=== PATIENT | female | born 1995 | race Caucasian/White ===

== ENCOUNTER 2025-01-19 19:02 | Inpatient (IN) | payer OTHER, SELFPAY ==
[2025-01-19 19:06] VITALS: BP 149/109; PULSE 104; RESP 16; TEMP 37.3; O2SAT 98; BMI 25.3
--- NOTE | 2025-01-19 19:57 | EX.ED.DYSGE1 ---
HPI History of Present Illness Chief Complaint: Substance Abuse Informant: patient and family Narrative Narrative: Patient is a 29-year-old female with history of alcohol use presenting for alcohol detox. Patient's last drink at 2100 yesterday. She initially tried to go to [facility] but they told her since she is not and active withdrawal she was turned away. Her godmother picked her up when she got off work today and brought her here. While in triage patient had generalized tonic-clonic seizure. Per godmother no history of alcohol withdrawal or seizures. Does have a history of asthma. PFSH PFSH Medical History Asthma Stomach ulcer ETOH abuse Home Medications ?Medication ?Instructions ?Recorded ?Last Taken ?Type NK 01/19/25 Unknown History Allergy/AdvReac Type Severity Reaction Status Date / Time No Known Allergies Allergy Verified 01/19/25 19:06 Social History Smoking Status: Former smoker ROS ROS ED Review of Systems ROS Unobtainable: due to mental status EXAM Physical Exam Const Vital Signs: 01/19/25 19:06 01/19/25 20:02 01/19/25 21:07 Temperature 99.1 F 98.1 F Temperature Source Oral Oral Pulse Rate 104 H 110 H 92 Respiratory Rate 16 20 H 17 Blood Pressure 149/109 H 145/102 H 142/103 H Blood Pressure Mean 122 116 116 Blood Pressure Source Monitor Blood Pressure Position Semi-Fowlers Blood Pressure Location Right Arm Pulse Ox 98 95 100 Oxygen Delivery Method Room Air Room Air Room Air 01/19/25 21:48 Temperature 98.6 F Temperature Source Pulse Rate 93 Respiratory Rate 18 Blood Pressure 141/99 H Blood Pressure Mean 113 Blood Pressure Source Blood Pressure Position Blood Pressure Location Pulse Ox 100 Oxygen Delivery Method Constitutional Narrative: Patient actively seizing on my initial evaluation. HEENT Reports moist mucous membranes Eyes PERRL and EOMs intact bilaterally Neck supple Neck Narrative: No meningeal signs Chest Wall inspection of chest normal and palpation of chest normal Resp normal respiratory effort and clear to auscultation bilaterally Cardio regular rhythm Rate: tachycardic GI normal to inspection, nondistended, normoactive bowel sounds and non-tender Neuro Neuro Narrative: Initially altered and having active seizure-like activity. Shortly after that patient is somnolent but responds to basic commands with verbal stimuli. Moving all extremities. Psych mental status grossly normal Skin no rashes or lesions noted and no wounds MDM MDM MDM Narrative Medical decision making narrative: Patient evaluated for symptoms associate with alcohol withdrawal. While in the ER in triage patient had acute seizure. Suspect she is in acute alcohol withdrawal. Patient is given IV Ativan with cessation of her seizure-like activity. Is mildly postictal afterwards. Physical consent consistent with some mild encephalopathy. Workup is consistent with changes had a seizure with a bicarb of 15, elevated anion gap of 32 otherwise BMP largely normal. CBC normal. Has some elevation of her AST with a 2 1 ratio to her ALT which is consistent with history of alcohol use. Alcohol level at this point is 80. Patient be admitted for further alcohol detox. Some further Ativan and IV fluids in the emergency room. Case discussed with hospitalist, Dr. Neri for admission. Patient is agreeable with admission. Patient does have T wave inversions on EKG with does not have any tachycardia, chest pain or other acute abnormalities. Will add on high-sensitivity opponent out of abundance of caution but suspect changes could be related to her recent seizure/stress pattern. Lab Data Attestation: I reviewed the patient's lab results. Labs: Laboratory Results - last 24 hr 01/19/25 20:00 WBC 6.3 RBC 4.58 Hgb 13.7 Hct 42.7 MCV 93.2 MCH 29.9 MCHC 32.1 RDW Std Deviation 58.3 H RDW Coeff of Serafin 17.1 H Plt Count 79 L MPV 10.3 Immature Gran % (Auto) 0.500 Neut % (Auto) 47.7 Lymph % (Auto) 35.2 [place] % (Auto) 13.1 H Eos % (Auto) 1.9 Baso % (Auto) 1.6 H Absolute Neuts (auto) 3.0 Absolute Lymphs (auto) 2.21 Nucleated RBC % 0 PT 13.9 INR 1.1 Sodium 142 Potassium 3.3 Chloride 94 L Carbon Dioxide 15.1 L Anion Gap 32 H BUN 7 Creatinine 0.72 Estim Creat Clear Calc 94.71 Est GFR (MDRD) Non-Af 114 BUN/Creatinine Ratio 10.1 Glucose 103 H Calcium 9.6 Total Bilirubin 0.84 AST 210 H ALT 115 H Alkaline Phosphatase 62 Total Protein 8.3 Albumin 5.0 Globulin 3.3 Albumin/Globulin Ratio 1.5 Serum , Qual NEGATIVE Ethyl Alcohol 80.5 H Rhythm Strip Rhythm Strip: Sinus Rhythm Rate: 100 Ectopy: None EKG Initial EKG: Attestation: I personally reviewed and interpreted this EKG as follows: Interpretation: Sinus Rhythm Comments: Normal sinus rhythm at a rate of 100 bpm Normal axis Normal intervals Nonspecific T wave inversion in 3, aVF, V3 through V6 No prior EKG available for comparison Management Discussion w/another healthcare provider: Hospitalist Discharge Plan Triage Chief Complaint: Substance Abuse ED Provider: Siri Hewitt Dx/Rx/DC Orders Clinical Impression: Alcohol withdrawal seizure, Transaminitis Prescriptions: No Action NK Primary Care Provider: Care Physician,No Primary Referrals: [facility] Doctor,Out of [Non-Staff] - Print Language: Frisian Disposition Disposition: Acute Care Hospital [facility]
[2025-01-19 20:02] VITALS: BP 145/102; PULSE 110; RESP 20; TEMP 36.7; O2SAT 95
--- NOTE | 2025-01-19 20:03 | PCA ---
no old ekg
[2025-01-19 20:10] LABS: Hematocrit 42.7 % (37-47); Hemoglobin 13.7 g/dL (12.0-15.0); Immature Granulocytes Count 0.030 X10^3/uL (0.0-0.0); Mean Corp Hgb Conc 32.1 g/dL (32-36); Mean Corpuscular Volume 93.2 fL (81-99); Mean Platelet Vol. 10.3 fl (6.2-12.0); NRBC Flagged by Analyzer 0 % (0-5); POSITIVE COUNT YES; Platelet Count 79 K/mm3 (150-450); RBC Distribution Width CV 17.1 % (11.6-14.6); RBC Distribution Width SD 58.3 fl (35.1-43.9); Red Blood Count 4.58 M/mm3 (4.2-5.4); White Blood Count 6.3 K/mm3 (4.4-11.0)
--- NOTE | 2025-01-19 20:18 | ED.RN ---
verbal order given by dr. de dios for 2mg iv ativan for seizure. Given @ 1950
[2025-01-19 20:20] LABS: Internal QC Validated? YES +Cl - CLEAR BKGD; Pregnancy, Serum, hCG Quali. NEGATIVE Negative; Record Kit Lot#, Serum Preg. 0000962302
[2025-01-19 20:21] LABS: Prothrombin Time (Protime)PT. 13.9 SECONDS (11.7-14.9)
[2025-01-19 20:44] LABS: AST(SGOT) 210 U/L (<=31); Alanine Aminotransfer ALT/SGPT 115 U/L (<=34); Albumin, Serum 5.0 g/dL (3.5-5.0); Alkaline Phosphatase 62 U/L (35-104); Anion Gap 32 (5-15); BUN 7 mg/dL (4-19); BUN/Creat Ratio 10.1 RATIO (10-20); Calcium,Total 9.6 mg/dL (7.6-11.0); Carbon Dioxide 15.1 mmol/L (21.0-32.0); Chloride 94 mmol/L (98-108); Estimated Creatinine Clearance 94.71 ml/min (50-250); Globulin 3.3 g/dL (2.2-4.2); Glucose 103 mg/dL (70-99); Potassium 3.3 mmol/L (3.3-5.1)
[2025-01-19 20:45] LABS: Alcohol, Blood (Medical)-Serum 80.5 mg/dL (<=10.0)
[2025-01-19] MEDS: Lorazepam 2 MG/ML WCH Syringe IV (20:59)
[2025-01-19 21:07] VITALS: BP 142/103; PULSE 92; RESP 17; O2SAT 100
[2025-01-19] MEDS: 0.9% Normal Saline (1000mL) 1,000 ML 999 ML IV ×2 (21:31→23:19)
[2025-01-19] MEDS: Lorazepam 2 MG/ML WCH Syringe 1 MG IV (21:46)
[2025-01-19 21:48] VITALS: BP 141/99; PULSE 93; RESP 18; TEMP 37; O2SAT 100
--- NOTE | 2025-01-19 22:01 | HP.PCM.HOS_ITS ---
HPI - General General Date of Admission: 01/19/25 Date of Service: 01/19/25 Chief Complaint: EtOH Withdrawal and Seizure. HPI Narrative EDVIN SHERIDAN, is a 29 F with a past medical history of asthma, former tobacco abuse, gastric ulcer and chronic EtOH abuse who presents to [facility] ER complaining of EtOH withdrawal and seizure. Ms. Sheridan is not a fully-reliable historian at this time after she had a seizure in the ER and was treated with IV lorazepam x 2 so information was gathered from chart, medical staff and computer. According to the records the patient's last drink was approximately 9 PM on January 18, 2025. She initially tried to go to [facility] but they told her since she was not in active withdrawal at that time she was allegedly turned away. Shortly after arrival at this institution she was had a witnessed tonic-clonic seizure in triage. Her grandmother informed the ER staff that she has no history of alcohol withdrawal or seizure activity prior to today. In the ER she was noted to have a ROSALIND of 80.5 mg/dL with clinical evidence of acute EtOH withdrawal complicated by EtOH withdrawal seizure in the setting of chronic EtOH abuse; with corresponding laboratory evidence of Transaminitis with AST of 210 units/L and ALT of 115 units/L in addition to thrombocytopenia of 79K present on admission likely due to marrow- suppression from EtOH and she was then admitted to the PCU for ongoing care for status is expected to extend beyond 2 midnights. PFSH Medical History Asthma Stomach ulcer ETOH abuse Home Medications ?Medication ?Instructions ?Recorded ?Last Taken ?Type NK 01/19/25 Unknown History Allergy/AdvReac Type Severity Reaction Status Date / Time No Known Allergies Allergy Verified 01/19/25 19:06 Social History Smoking Status: Former smoker ROS ROS Narrative Full review of systems was not possible due to patient's confusion after IV lorazepam and recent EtOH withdrawal seizure. Vital Signs Vital Signs Vital Signs: 01/19/25 19:06 01/19/25 20:02 01/19/25 21:07 Temperature 99.1 F 98.1 F Temperature Source Oral Oral Pulse Rate 104 H 110 H 92 Respiratory Rate 16 20 H 17 Blood Pressure 149/109 H 145/102 H 142/103 H Blood Pressure Mean 122 116 116 Blood Pressure Source Monitor Blood Pressure Position Semi-Fowlers Blood Pressure Location Right Arm Pulse Ox 98 95 100 Oxygen Delivery Method Room Air Room Air Room Air 01/19/25 21:48 Temperature 98.6 F Temperature Source Pulse Rate 93 Respiratory Rate 18 Blood Pressure 141/99 H Blood Pressure Mean 113 Blood Pressure Source Blood Pressure Position Blood Pressure Location Pulse Ox 100 Oxygen Delivery Method Weight Weight: 134 lb Body Mass Index (BMI) 25.3 Physical Exam Const no apparent distress and average body habitus Constitutional Narrative: Patient is lethargic but arousable. Orientation / Consciousness: lethargic HEENT normocephalic, head/scalp atraumatic and hearing grossly normal bilaterally HEENT Narrative: Mucous membrane dry. Eyes PERRL and EOMs intact bilaterally Neck no lymphadenopathy, supple and no JVD Resp normal respiratory effort, no retractions, no use of accessory muscles and clear to auscultation bilaterally Cardio regular rate and regular rhythm GI normal to inspection, nondistended, normoactive bowel sounds, soft to palpation, non-tender and non-distended Extremity normal to inspection, full ROM and no clubbing, cyanosis or edema Skin Skin Narrative: Patient has evidence of rash, abscess, wounds or jaundice. Neuro CN's II-XII intact bilaterally, moves all extremities and no focal motor deficits Sensorium / Orientation: awake, alert, oriented to person and oriented to place Speech: speech normal Psych Psych Narrative: Patient is lethargic but arousable. Results Medical Records Data Attestation: I reviewed the patient's medical records Lab / Micro Data Attestation: I reviewed the patient's lab results. 01/19/25 20:00 01/19/25 20:00 Labs: Laboratory Results - last 24 hr 01/19/25 20:00: WBC 6.3, RBC 4.58, Hgb 13.7, Hct 42.7, MCV 93.2, MCH 29.9, MCHC 32.1, RDW Std Deviation 58.3 H, RDW Coeff of Serafin 17.1 H, Plt Count 79 L, MPV 10.3, Immature Gran % (Auto) 0.500, Neut % (Auto) 47.7, Lymph % (Auto) 35.2, M doug % (Auto) 13.1 H, Eos % (Auto) 1.9, Baso % (Auto) 1.6 H, Absolute Neuts (auto) 3.0, Absolute Lymphs (auto) 2.21, Nucleated RBC % 0, PT 13.9, INR 1.1, Sodium 142, Potassium 3.3, Chloride 94 L, Carbon Dioxide 15.1 L, Anion Gap 32 H, BUN 7, Creatinine 0.72, Estim Creat Clear Calc 94.71, Est GFR (MDRD) Non-Af 114, BUN/Creatinine Ratio 10.1, Glucose 103 H, Calcium 9.6, Total Bilirubin 0.84, AST 210 H, ALT 115 H, Alkaline Phosphatase 62, Total Protein 8.3, Albumin 5.0, Globulin 3.3, Albumin/Globulin Ratio 1.5, Serum , Qual NEGATIVE, Ethyl Alcohol 80.5 H Assessment & Plan Assessment/Plan (1) Alcohol withdrawal seizure: QUALIFIERS: Complication of substance-induced condition: with unspecified complication Qualified Code(s): F10.939 - Alcohol use, unspecified with withdrawal, unspecified; R56.9 - Unspecified convulsions (2) Chronic alcohol abuse: (3) Transaminitis: (4) Thrombocytopenia: (5) Overweight (BMI 25.0-29.9): PLAN: Plan 1. EtOH Withdrawal Seizure in the setting of Chronic EtOH Abuse - Admit to PCU under the EtOH detoxification protocol primarily consisting of phenobarbital which will be used IV until oral taper can be initiated. When patient sensorium clears EtOH cessation will be strongly encouraged. Give ondansetron as needed for nausea or vomiting. Finally, we will consult case management to see this patient on rounds in the a.m. for further recommendations on helping her achieve sobriety with help appreciated advance. 2. Transaminitis with AST of 210 units/L and ALT of 115 units/L complicating #1 - Check CMP in AM to follow trend. 3. Thrombocytopenia of 79K present on admission likely due to marrow- suppression from EtOH compounding #1 & #2 - Check CMP daily to follow trend. Check B12 and folate levels to evaluate for deficiency. 4. Overweight; a BMI of 25.9 this admission adding to the burden of disease outlined from #1 - #3 - Weight loss will be recommended. Check TSH. 5. History of asthma - Stable with no evidence of acute flare at this time. Continue as needed nebulizers. 6. Former tobacco abuse - Noted. 7. History of gastric ulcer - Noted with no active complaints related to this issue at this time. 8. DVT prophylaxis - SCD's only in light of thrombocytopenia outlined in #3. Total time: Approximately (but not less than) 75 minutes. Charges/Coding Visit Charges Inpatient E&M: 76728 Init Hosp L3
[2025-01-19 23:15] LABS: Magnesium 1.5 mg/dL (1.5-2.2)
[2025-01-19 23:15] LABS: Troponin T High Sensitivity < 6 ng/L (<=14)
[2025-01-19 23:46] LABS: Mucous, Urine 0 SEEN /hpf (<or=2+); Red Blood Cells-Urine 0 SEEN /hpf (0-5); Squamous Epithelial Cells - UA 0 SEEN /hpf (5-10)
[2025-01-19 23:47] VITALS: BP 150/99; PULSE 100; RESP 16; TEMP 37.1; O2SAT 99
[2025-01-19 23:52] LABS: Color, Urine Yellow (Yellow); Glucose, Dipstick Normal (Normal); Ketone-Dipstick 50 mg/dl (Negative); Leukocyte Esterase-Dipstick Negative /ul (Negative); Nitrite-Dipstick Negative (Negative); Occult Blood-Urine 25 /ul (Negative); Protein-Dipstick 100 mg/dl (Negative); Specific Gravity, Urine 1.010 (1.002-1.030); Urine Bilirubin Dipstick Negative (Negative)
[2025-01-20] MEDS: 0.9% Saline Lock 10 ML Syringe IV ×2 (00:09→06:05)
[2025-01-20 00:12] LABS: Barbiturate Urine NEGATIVE (< 200 ng/mL); Benzodiazepine Urine PRESUMPTIVE POSITIVE (< 200 ng/mL); PCP Urine NEGATIVE (< 25 ng/mL); THC Urine NEGATIVE (< 50 ng/mL)
[2025-01-20 00:13] LABS: Troponin T High Sens 2 HR < 6 ng/L (<=14)
[2025-01-20 00:14] VITALS: BMI 25.8
[2025-01-20] MEDS: KCL 20MEQ in 0.9% NS 20 MEQ/1,000 ML IV.SOLN. 150 MEQ IV ×2 (00:36→07:43)
[2025-01-20] MEDS: Multivitamins 10 ML in 0.9% Normal Saline (500mL Bag) 500 ML 510 ML IV (00:40)
[2025-01-20 00:49] LABS: Troponin T High Sens 4 HR < 6 ng/L (<=14)
[2025-01-20 02:17] VITALS: BP 138/94; PULSE 93; RESP 16; TEMP 36.8; O2SAT 97
[2025-01-20] MEDS: hydrOXYzine PAM 25 MG Capsule 50 MG PO (03:19)
[2025-01-20 05:12] LABS: AST(SGOT) 144 U/L (<=31); Alanine Aminotransfer ALT/SGPT 88 U/L (<=34); Albumin, Serum 4.1 g/dL (3.5-5.0); Alkaline Phosphatase 49 U/L (35-104); Anion Gap 19 (5-15); BUN 5 mg/dL (4-19); BUN/Creat Ratio 11.4 RATIO (10-20); Calcium,Total 8.0 mg/dL (7.6-11.0); Carbon Dioxide 18.1 mmol/L (21.0-32.0); Chloride 96 mmol/L (98-108); Estimated Creatinine Clearance 153.04 ml/min (50-250); Globulin 2.9 g/dL (2.2-4.2); Glucose 68 mg/dL (70-99); Potassium 3.8 mmol/L (3.3-5.1)
[2025-01-20 05:34] LABS: Hematocrit 40.2 % (37-47); Hemoglobin 13.5 g/dL (12.0-15.0); Immature Granulocytes Count 0.020 X10^3/uL (0.0-0.0); Mean Corp Hgb Conc 33.6 g/dL (32-36); Mean Corpuscular Volume 90.1 fL (81-99); Mean Platelet Vol. 10.5 fl (6.2-12.0); NRBC Flagged by Analyzer 0 % (0-5); POSITIVE COUNT YES; Platelet Count 62 K/mm3 (150-450); RBC Distribution Width CV 16.7 % (11.6-14.6); RBC Distribution Width SD 55.5 fl (35.1-43.9); Red Blood Count 4.46 M/mm3 (4.2-5.4); White Blood Count 4.8 K/mm3 (4.4-11.0)
[2025-01-20 06:01] VITALS: BP 121/94; PULSE 81; RESP 16; TEMP 37.1; O2SAT 98
[2025-01-20 06:02] VITALS: BMI 25.9
[2025-01-20 06:31] LABS: FOLATES,SERUM (FOLIC ACID) 18.90 ng/mL (4.60-34.80)
[2025-01-20 07:39] VITALS: BP 126/94; PULSE 93; RESP 16; TEMP 36.7; O2SAT 98
--- NOTE | 2025-01-20 07:59 | PCM.PN.HOSP ---
Reason for Visit Chief Complaint: EtOH Withdrawal and Seizure. Subjective Subjective Patient with no acute events overnight per self and per nursing report. She notes feeling remarkably improved since initial ED arrival. She has had no recurrent seizure activity. She notes her withdrawal symptoms have markedly improved with only mild tremors at this point. Patient denies fevers, chills, nausea, emesis, abdominal pain, chest pain or dyspnea. Objective Data Objective Data Vital Signs: Vital Signs Temp Pulse Resp BP Pulse Ox O2 Del Method 98.8 F 81 16 121/94 H 98 Room Air 01/20/25 06:01 01/20/25 06:01 01/20/25 06:01 01/20/25 06:01 01/20/25 06:01 01/20/25 06:01 Oxygen Delivery Method Room Air Weight: 137 lb 2.04 oz Body Mass Index (BMI) 25.9 Intake & Output: Intake and Output for Last 24 Hours 01/18/25 01/19/25 01/20/25 23:59 23:59 23:59 Intake Total 1000 / 1000 2630 / 2630 Balance 1000 / 1000 2630 / 2630 Lab / Micro Data 01/20/25 04:02 01/20/25 04:02 Labs: Laboratory Results - last 24 hr 01/19/25 20:00: WBC 6.3, RBC 4.58, Hgb 13.7, Hct 42.7, MCV 93.2, MCH 29.9, MCHC 32.1, RDW Std Deviation 58.3 H, RDW Coeff of Serafin 17.1 H, Plt Count 79 L, MPV 10.3, Immature Gran % (Auto) 0.500, Neut % (Auto) 47.7, Lymph % (Auto) 35.2, [place] % (Auto) 13.1 H, Eos % (Auto) 1.9, Baso % (Auto) 1.6 H, Absolute Neuts (auto) 3.0, Absolute Lymphs (auto) 2.21, Nucleated RBC % 0, PT 13.9, INR 1.1, Sodium 142, Potassium 3.3, Chloride 94 L, Carbon Dioxide 15.1 L, Anion Gap 32 H, BUN 7, Creatinine 0.72, Estim Creat Clear Calc 94.71, Est GFR (MDRD) Non-Af 114, BUN/Creatinine Ratio 10.1, Glucose 103 H, Calcium 9.6, Total Bilirubin 0.84, AST 210 H, ALT 115 H, Alkaline Phosphatase 62, Troponin T High Sens < 6, Total Protein 8.3, Albumin 5.0, Globulin 3.3, Albumin/Globulin Ratio 1.5, Serum , Qual NEGATIVE, Ethyl Alcohol 80.5 H 01/19/25 22:30: Magnesium 1.5, Troponin T Hi Sens 2 Hr < 6 01/19/25 23:30: Urine Color Yellow, Urine Clarity Clear, Urine pH 7.0, Ur Specific [place] 1.010, Urine Protein 100 H, Urine Glucose (UA) Normal, Urine Ketones 50 H, Urine Occult Blood 25 H, Urine Nitrite Negative, Urine Bilirubin Negative, Urine Urobilinogen Normal, Ur Leukocyte Esterase Negative, Urine RBC 0 SEEN, Urine WBC 0 SEEN, Ur Squamous Epith Cells 0 SEEN, Urine Bacteria 0 SEEN, Urine Mucus 0 SEEN, Urine Opiates Screen NEGATIVE, U Buprenorphine Qual NEGATIVE, Ur Oxycodone Screen NEGATIVE, Urine Methadone Screen NEGATIVE, Urine Fentanyl Screen NEGATIVE, Ur Barbiturates Screen NEGATIVE, Ur Phencyclidine Scrn NEGATIVE, Ur Amphetamines Screen NEGATIVE, U Benzodiazepines Scrn PRESUMPTIVE POSITIVE, Urine Cocaine Screen NEGATIVE, U Cannabinoids Screen NEGATIVE 01/20/25 00:25: Troponin T Hi Sens 4Hr < 6 01/20/25 04:02: WBC 4.8, RBC 4.46, Hgb 13.5, Hct 40.2, MCV 90.1, MCH 30.3, MCHC 33.6, RDW Std Deviation 55.5 H, RDW Coeff of Serafin 16.7 H, Plt Count 62 L, MPV 10.5, Immature Gran % (Auto) 0.400, Neut % (Auto) 66.6, Lymph % (Auto) 17.0 L, [place] % (Auto) 13.1 H, Eos % (Auto) 1.0, Baso % (Auto) 1.9 H, Absolute Neuts (auto) 3.2, Absolute Lymphs (auto) 0.82 L, Nucleated RBC % 0, Sodium 133, Potassium 3.8, Chloride 96 L, Carbon Dioxide 18.1 L, Anion Gap 19 H, BUN 5, Creatinine 0.45 L, Estim Creat Clear Calc 153.04, Est GFR (MDRD) Non-Af 132, BUN/Creatinine Ratio 11.4, Glucose 68 L, Calcium 8.0, Phosphorus 2.7, Total Bilirubin 0.89, AST 144 H, ALT 88 H, Alkaline Phosphatase 49, Total Protein 7.0, Albumin 4.1, Globulin 2.9, Albumin/Globulin Ratio 1.4, Serum Folate 18.90, TSH 5.350 H Rhythm Strip Rhythm Strip: Sinus Rhythm Rate: 100 Ectopy: None Physical Exam Narrative Physical Examination: General: Awake, alert, oriented x 3 and cooperative, laying in the PCU bed, fatigued but notes feeling remarkably improved, only mild tremors still. Skin: Normal color, normal turgor, no icterus, no cyanosis except occasional stage ecchymoses, abrasion. HEENT: AT/NC, EOMI, PERRLA, MMM. Lungs: Mild diminished, greater bases, proper effort, no rales, ronchi or wheezing. Heart: Regular rate and rhythm; no gallop, rub audible. Abdomen: Soft, NTTP, ND, mildly hyperactive BS Extremities: No cyanosis, clubbing, or edema. Neurological: Patient awake, alert, oriented as noted, cognitive function intact; pupils equally reactive to light and accommodation, cranial nerves grossly normal, moving all 4 extremities, no focal deficits, strength improved, mildly global decrease, only mild tremors noted but markedly improved she notes. Psychiatric: Affect appears fatigued otherwise normal, no acute evidence of depressive or anxiety feelings. Assessment & Plan Assessment/Plan (1) Alcohol withdrawal seizure: QUALIFIERS: Complication of substance-induced condition: with unspecified complication Qualified Code(s): F10.939 - Alcohol use, unspecified with withdrawal, unspecified; R56.9 - Unspecified convulsions (2) Chronic alcohol abuse: PLAN: Plan The patient is a 29 y/o F w/ PMHx: EtOH abuse w/ chronic alcoholic hepatitis/transaminitis, chronic thrombocytopenia, Asthma, Former tobacco use, GERD w/ Hx gastric ulcer, Overweight who presents to the [facility] ED on 01/19/2025 with alcohol withdrawal with associated seizure. #1. Acute EtOH Withdrawal with associated seizure with associated chronic alcoholic hepatitis/transaminitis as well as chronic thrombocytopenia as noted #2: Admitted to the PCU given seizure concerns, improved w/ treatment, 01/20/25 will change level of care to standard, initial labs obtained with noted mild AST/ALT elevation similar to previous, magnesium low at normal 1.5 with supplementation administered, phosphorus 2.7, initiated and maintained on protocol with taper course of Phenobarbital, as needed gabapentin, Catapres, Bentyl, Vistaril, IV fluids, IV antiemetics, Tylenol as needed for pain. Case management consulted for assistance for transition to next level of rehabilitation care. Maintain on CINJ protocol concurrently. #2. Chronic thrombocytopenia: Admission platelets 79, likely secondary to alcohol abuse, 01/20/25 repeat platelets 62, coags normal. #3. Chronic asthma: Not on any regimen outpatient, will have albuterol as needed, encourage continued tobacco cessation. #4. Former tobacco use: Encourage continued tobacco cessation. #5. GERD with history of gastric ulcer: Not on any regimen outpatient, cautiously use ibuprofen, will have Mylanta if necessary. #6. DVT prophylaxis: Low risk for type of presentation. Encourage ambulation. Charges/Coding Visit Charges Inpatient E&M: 72000 Subs Hosp L2
[2025-01-20 09:08] LABS: Free T3 3.2 pg/mL (2.18-3.98); Vitamin B12 1177 pg/mL (180-914)
[2025-01-20] MEDS: Thiamine Hydrochloride 100 MG Tablet PO (10:07)
[2025-01-20] MEDS: Magnesium Sulfate 2 GM in Dextrose 5%-Water (100mL Bag) 100 ML IV (10:12)
[2025-01-20 11:39] VITALS: BP 120/90; PULSE 90; RESP 16; TEMP 36.7; O2SAT 100
--- NOTE | 2025-01-20 14:41 | CASEMGMT ---
Social Work RN asking if pt is going to be seen today. SW called pt navigator Billie elizabeth/Lola Eighty, she will see pt Wednesday. HERMELINDA let RN know. CASIE Green
[2025-01-20 20:50] VITALS: BP 143/113; PULSE 111; RESP 20; TEMP 36.8; O2SAT 100
--- NOTE | 2025-01-20 22:47 | NURSING ---
Significant amount of time spent with patient this evening. While patient answers orientation questions appropriately, she is obviously having visual hallucinations. Reports seeing someone with a dark conrad on. Pt mood labile. Has been agitated, apologetic, tearful. Pt frequently getting OOB; somewhat unsteady on feet. Pt expresses desire to get dressed. Pt also mentions wanting to leave tomorrow. Pt reports wanting to get cell phone and clothes from [employer] bin. This RN explained that opening the bin would breach her agreement for RAMP program. Pt reports nausea. Offered patient Zofran, medication for anxiety, shampoo cap for hair. Pt declined, but later agreed to taking Gabapentin and Trazodone. After Gabapentin and Trazodone, pt more restful.
[2025-01-21] VITALS (24 sets, daily range): BP systolic 123–163; BP diastolic 85–123; PULSE 46–103; RESP 10–18; TEMP 35.6–36.4; O2SAT 97–100; BMI 26.4
[2025-01-21] MEDS: hydrOXYzine PAM 25 MG Capsule 50 MG PO (00:47)
[2025-01-21] MEDS: Lorazepam 2 MG/ML WCH Syringe 1 MG IV ×2 (00:52→14:01)
[2025-01-21] MEDS: 0.9% Saline Lock 10 ML Syringe IV ×6 (00:53→21:28)
--- NOTE | 2025-01-21 01:55 | PCM.HOSP.N ---
Hospitalist Note I was contacted late in the evening on January 20, 2025 by TWISTING MACHINE OPERATOR and informed patient was becoming more anxious and confused with patient looking for her dog in her bed and acting bizarrely. She was then treated with additional IV lorazepam x 1 with continued confusion and agitation. Therefore, decision was made to send her to the ICU for Precedex drip she can be safely managed in a more closely monitored environment.
[2025-01-21] MEDS: dexMEDEtomidine 400 MCG in 0.9% Normal Saline (100mL Bag) 96 ML 7.8 MCG CONT INF (02:15)
--- NOTE | 2025-01-21 02:23 | NURSING ---
Dr Dick at bedside to assess patient as Ativan 1 mg x 1 dose not effective and patient still actively hallucinating looking for dog in room and yelling out to mom. Decision made to transfer patient to ICU for Precedex infusion. Report called to READY TO WEAR DEPARTMENT MANAGER and patient and belongings transfered via bed to ICU bed 2.
[2025-01-21] MEDS: Lorazepam 2 MG/ML WCH Syringe IV (03:30)
[2025-01-21] MEDS: dexMEDEtomidine 400 MCG in 0.9% Normal Saline (100mL Bag) 96 ML 20.2 MCG CONT INF (06:12)
--- NOTE | 2025-01-21 06:46 | PN.HOSP_ITS ---
Reason for Visit Chief Complaint: EtOH Withdrawal and Seizure. Subjective Subjective Patient overnight with significant worsening symptoms becoming delirious and agitated requiring at one point code lambert however quickly de-escalated. Patient was transition to the ICU and initiated on Precedex drip. This morning they are attempting to wean however patient is still very lethargic. No obvious evidence of fevers, chills, nausea, emesis, abdominal pain, chest pain or dyspnea but patient still lethargic on Precedex medication. Objective Data Objective Data Vital Signs: Vital Signs Temp Pulse Resp BP Pulse Ox O2 Del Method 97.4 F L 74 16 132/97 H 97 Room Air 01/21/25 02:15 01/21/25 05:00 01/21/25 05:00 01/21/25 05:00 01/21/25 05:00 01/21/25 05:00 Oxygen Delivery Method Room Air Weight: 139 lb 8.842 oz Body Mass Index (BMI) 26.4 Intake & Output: Intake and Output for Last 24 Hours 01/19/25 01/20/25 01/21/25 23:59 23:59 23:59 Intake Total 1000 / 1000 4374 / 4474 169.78 / 169.78 Balance 1000 / 1000 4374 / 4474 169.78 / 169.78 Lab / Micro Data 01/21/25 08:00 01/21/25 08:00 Labs: Laboratory Results - last 24 hr 01/20/25 04:02: Vitamin B12 1177 H, Free T4 0.80, Free T3 pg/dL 3.2 Rhythm Strip Rhythm Strip: Sinus Rhythm Rate: 100 Ectopy: None Physical Exam Narrative Physical Examination: General: Patient asleep, somewhat arousable but still not very alert, continued on Precedex drip, being weaned, laying in the ICU bed, no acute distress. Skin: Normal color, normal turgor, no icterus, no cyanosis except occasional stage ecchymoses, abrasion. HEENT: AT/NC, EOMI, PERRLA, mildly dry MM. Lungs: Mild diminished, greater bases, proper effort, no rales, ronchi or wheezing. Heart: Mildly bradycardic with regular rhythm; no gallop, rub audible. Abdomen: Soft, NTTP, ND, mildly hyperactive BS Extremities: No cyanosis, clubbing, or edema. Neurological: Patient asleep, somewhat arousable but still not very alert, continued on Precedex drip, being weaned, laying in the ICU bed, no acute distress, cognitive function not baseline intact; pupils equally reactive to light and accommodation, difficult to assess cranial nerves given sedation, spontaneously moving extremities, strength severely globally decreased. Psychiatric: Affect appears flat, lethargic, continued on sedate of Precedex drip, no acute evidence of depressive or anxiety feelings. Assessment & Plan Assessment/Plan (1) Alcohol withdrawal seizure: QUALIFIERS: Complication of substance-induced condition: with unspecified complication Qualified Code(s): F10.939 - Alcohol use, unspecified with withdrawal, unspecified; R56.9 - Unspecified convulsions (2) Chronic alcohol abuse: PLAN: Plan The patient is a 29 y/o F w/ PMHx: EtOH abuse w/ chronic alcoholic hepatitis/transaminitis, chronic thrombocytopenia, Asthma, Former tobacco use, GERD w/ Hx gastric ulcer, Overweight who presents to the [facility] ED on 01/19/2025 with alcohol withdrawal with associated seizure. #1. Acute EtOH Withdrawal with associated seizure with associated chronic alcoholic hepatitis/transaminitis as well as chronic thrombocytopenia as noted #2: Initially mated to PCU given seizure concerns, improved with initiation of withdrawal treatment, 01/20/2025 given clinically doing well transition to [facility] status, presentation labs with mild acute on chronic transaminitis continuing to improve with presentation AST/ALT 210/115--> 01/21/25 AST/ALT 99/66, magnesium low normal upon presentation 1.5 with supplementation administered, phosphorus 2.7, initiated and maintained on protocol with taper course of Phenobarbital, as needed gabapentin, Catapres, Bentyl, Vistaril, IV fluids, IV antiemetics, Tylenol as needed for pain. 01/20/2025 late evening/early 01/21/2025 morning patient transition to the ICU and initiated on Precedex drip given significant onset agitation and delirium with improvement. 01/21/2025 attempting to wean Precedex drip. Case management consulted for assistance for transition to next level of rehabilitation care. Maintained on CIWA protocol concurrently. #2. Chronic thrombocytopenia: Admission platelets 79, likely secondary to alcohol abuse, 01/20/25 repeat platelets 62-> 01/21/2025 platelets 70. Presentation coags normal. #3. Chronic asthma: Not on any regimen outpatient, will have albuterol as needed, encourage continued tobacco cessation. #4. Former tobacco use: Encourage continued tobacco cessation. #5. GERD with history of gastric ulcer: Not on any regimen outpatient, cautiously use ibuprofen, will have Mylanta if necessary. #6. DVT prophylaxis: Low risk for type of presentation. Once off Precedex drip and clinically improving will encourage ambulation. Charges/Coding Visit Charges Inpatient E&M: 33496 Subs Hosp L3
[2025-01-21 08:30] LABS: Hematocrit 36.2 % (37-47); Hemoglobin 12.2 g/dL (12.0-15.0); Immature Granulocytes Count 0.030 X10^3/uL (0.0-0.0); Mean Corp Hgb Conc 33.7 g/dL (32-36); Mean Corpuscular Volume 88.3 fL (81-99); Mean Platelet Vol. 11.3 fl (6.2-12.0); NRBC Flagged by Analyzer 0 % (0-5); POSITIVE COUNT YES; Platelet Count 70 K/mm3 (150-450); RBC Distribution Width CV 15.8 % (11.6-14.6); RBC Distribution Width SD 51.4 fl (35.1-43.9); Red Blood Count 4.10 M/mm3 (4.2-5.4); White Blood Count 5.0 K/mm3 (4.4-11.0)
[2025-01-21 08:34] LABS: AST(SGOT) 99 U/L (<=31); Alanine Aminotransfer ALT/SGPT 66 U/L (<=34); Albumin, Serum 4.1 g/dL (3.5-5.0); Alkaline Phosphatase 49 U/L (35-104); Anion Gap 14 (5-15); BUN 6 mg/dL (4-19); BUN/Creat Ratio 14.5 RATIO (10-20); Calcium,Total 8.6 mg/dL (7.6-11.0); Carbon Dioxide 21.8 mmol/L (21.0-32.0); Chloride 99 mmol/L (98-108); Estimated Creatinine Clearance 161.60 ml/min (50-250); Globulin 2.7 g/dL (2.2-4.2); Glucose 117 mg/dL (70-99); Magnesium 2.3 mg/dL (1.5-2.2); Potassium 3.6 mmol/L (3.3-5.1)
[2025-01-21 08:35] LABS: Differential Indicated SCAN CRITERIA MET
--- NOTE | 2025-01-21 12:00 | NURSING ---
Patient awake and attempting to climb out of bed. alert to self only, unable to be redirected. becoming anxious and agitated ripping BP cuff, pulse ox and telemetry monitoring off. attempts to reorient patient unsuccessful, patient up to chair x2 assist agitated and looking for glasses. tote in room opened so patient could look for glasses in her purse as she reports the glasses on the nightstand are not hers. patient sitting in chair looking through her purse. precedex gtt titration increase to reach goal RASS of 0 to -1.
[2025-01-21] MEDS: dexMEDEtomidine 400 MCG in 0.9% Normal Saline (100mL Bag) 96 ML 23.3 MCG CONT INF ×2 (13:20→18:00)
--- NOTE | 2025-01-21 14:45 | ADDICTION ---
Attempted to meet with pt to complete RAMP assessments but pt was not stable or alert enough to engage in discussion of tx options. Pt is still being monitored closely in ICU d/t perceptual disturbances, hallucinations, and combative behaviors related to w/d sxs. Pt's status was communicated to RAMP coordinator.
--- NOTE | 2025-01-21 14:58 | PCM.PN.BLA ---
Progress Note Patient with increased agitation upon attempted precedex wean, increased again to max dosing. Will change phenobarbital to 100 mg IV q 4 hours, continue overlapping CIWA ativan and dose with additional phenobarbital 100 mg IV x 1 now.
--- NOTE | 2025-01-21 18:10 | NURSING ---
this nurse went to obtain dowling catheter to place per physician order and upon return patient awake and standing at foot of bed, alert to self only. assisted back to bed x2 assist however is agitated/anxious and unable to be redirected. patient answered yes when asked if she had to pee. assist x2 up to bedside commode and was able to void 500ml of straw colored urine after sitting on commode for about 10 minutes. patient then assisted back to bed x2 assist. patient will rest with eyes closed for a few minutes and then awakens and attempts to climb out of bed. 1:1, redirection, fluids (drank sprite without difficulty swallowing, hands tremoring to hold cup) unsuccessful at calming patient. scheduled phenobarbital to be given once pharmacy sends per phone call.
[2025-01-21] MEDS: Dexmedetomidine 1,000 mcg in 0.9% NS 240 mL 23.7 MCG CONT INF (22:00)
[2025-01-22] VITALS (26 sets, daily range): BP systolic 92–154; BP diastolic 70–104; PULSE 49–78; RESP 10–16; TEMP 35.3–36.9; O2SAT 97–100; BMI 26.6
[2025-01-22] MEDS: Lorazepam 2 MG/ML WCH Syringe 1 MG IV ×3 (04:15→18:27)
[2025-01-22] MEDS: 0.9% Saline Lock 10 ML Syringe IV ×5 (04:15→14:22)
[2025-01-22] MEDS: Dexmedetomidine 1,000 mcg in 0.9% NS 240 mL 23.7 MCG CONT INF (08:44)
--- NOTE | 2025-01-22 17:43 | PCM.PN.HOSP ---
Reason for Visit Chief Complaint: EtOH Withdrawal and Seizure. Subjective Subjective Patient was seen and examined today, she is sedated and resting quietly, she appears in no distress Objective Data Objective Data Vital Signs: Vital Signs Temp Pulse Resp BP Pulse Ox O2 Del Method 98.2 F 74 15 104/70 97 Room Air 01/22/25 17:00 01/22/25 17:00 01/22/25 17:00 01/22/25 17:00 01/22/25 17:00 01/22/25 17:00 Oxygen Delivery Method Room Air Weight: 63.9 kg Body Mass Index (BMI) 26.6 Intake & Output: Intake and Output for Last 24 Hours 01/20/25 01/21/25 01/22/25 23:59 23:59 23:59 Intake Total 4374 / 4474 583.48 / 607.18 385.37 / 385.37 Output Total 500 / 500 1400 / 1400 Balance 4374 / 4474 83.48 / 107.18 -1014.63 / -1014.63 Lab / Micro Data 01/21/25 08:00 01/21/25 08:00 Rhythm Strip Rhythm Strip: Sinus Rhythm Rate: 100 Ectopy: None Physical Exam Const no apparent distress and healthy appearing Constitutional Narrative: Patient is somnolent, she awakens to painful stimuli and verbal stimuli General Appearance: well kempt and well developed HEENT normocephalic, head/scalp atraumatic and moist oral mucous membranes Eyes PERRL, EOMs intact bilaterally and conjunctivae normal Neck no JVD and thyroid normal General: trachea midline Resp normal respiratory effort, no retractions, no use of accessory muscles and clear to auscultation bilaterally Auscultation: Negative for rales, rhonchi or wheezes Cardio regular rate, regular rhythm, S1 normal heart sound, S2 normal heart sound, no murmurs, no rub and no gallops GI normal to inspection, nondistended, normoactive bowel sounds, soft to palpation, non-tender and non-distended Extremity no clubbing, cyanosis or edema Skin no rashes or lesions noted General Skin Exam: no breakdown Neuro CN's II-XII intact bilaterally Neuro Narrative: Patient is somnolent, she awakens to verbal and painful stimuli Psych Psych Narrative: Patient is somnolent, she awakens to verbal and painful stimuli Assessment & Plan Assessment/Plan (1) Alcohol withdrawal seizure: QUALIFIERS: Complication of substance-induced condition: with unspecified complication Qualified Code(s): F10.939 - Alcohol use, unspecified with withdrawal, unspecified; R56.9 - Unspecified convulsions PLAN: Plan 1. DTs from alcohol withdrawal-patient is currently on Precedex and is receiving IV phenobarbital #2 alcohol withdrawal seizure-patient does not appear to be having any signs of seizure activity #3 chronic alcoholism-complicates care, management, recovery, and prognosis #4 elevated liver enzymes-secondary to chronic alcohol use-these will be monitored as necessary Total clinical time spent by myself addressing the patient's medical issues, reviewing all of her data, and collaborating with patient's care team: 35 minutes Charges/Coding Visit Charges Inpatient E&M: 13484 Subs Hosp L2
[2025-01-22] MEDS: Dexmedetomidine 1,000 mcg in 0.9% NS 240 mL 20.6 MCG CONT INF (22:32)
[2025-01-23] VITALS (26 sets, daily range): BP systolic 100–151; BP diastolic 75–104; PULSE 51–80; RESP 10–17; TEMP 35.4–36.4; O2SAT 88–100; BMI 26.6
[2025-01-23] MEDS: 0.9% Saline Lock 10 ML Syringe IV ×2 (02:19→05:48)
[2025-01-23] MEDS: Lorazepam 2 MG/ML WCH Syringe 1 MG IV ×2 (07:27→13:31)
[2025-01-23] MEDS: Dexmedetomidine 1,000 mcg in 0.9% NS 240 mL 23.7 MCG CONT INF ×2 (09:13→19:48)
--- NOTE | 2025-01-23 18:46 | PCM.PN.HOSP ---
Reason for Visit Chief Complaint: EtOH Withdrawal and Seizure. Subjective Subjective Patient was seen and examined today, she remains on a Precedex drip, nursing states that she becomes agitated at times and the drip has to be raised. I decided to lower the dose of IV phenobarbital to every 6 hours. Objective Data Objective Data Vital Signs: Vital Signs Temp Pulse Resp BP Pulse Ox O2 Del Method 96.6 F L 57 L 10 L 123/89 H 100 Room Air 01/23/25 16:00 01/23/25 18:00 01/23/25 18:00 01/23/25 18:00 01/23/25 18:00 01/23/25 18:00 Oxygen Delivery Method Room Air Weight: 64 kg Body Mass Index (BMI) 26.6 Intake & Output: Intake and Output for Last 24 Hours 01/21/25 01/22/25 01/23/25 23:59 23:59 23:59 Intake Total 583.48 / 607.18 894.07 / 904.37 424.15 / 424.15 Output Total 500 / 500 1400 / 1800 1225 / 1225 Balance 83.48 / 107.18 -505.93 / -895.63 -800.85 / -800.85 Lab / Micro Data 01/21/25 08:00 01/21/25 08:00 Rhythm Strip Rhythm Strip: Sinus Rhythm Rate: 100 Ectopy: None Physical Exam Narrative no apparent distress and healthy appearing Constitutional Narrative: Patient is somnolent, she awakens to painful stimuli and verbal stimuli General Appearance: well kempt and well developed HEENT normocephalic, head/scalp atraumatic and moist oral mucous membranes Eyes PERRL, EOMs intact bilaterally and conjunctivae normal Neck no JVD and thyroid normal General: trachea midline Resp normal respiratory effort, no retractions, no use of accessory muscles and clear to auscultation bilaterally Auscultation: Negative for rales, rhonchi or wheezes Cardio regular rate, regular rhythm, S1 normal heart sound, S2 normal heart sound, no murmurs, no rub and no gallops GI normal to inspection, nondistended, normoactive bowel sounds, soft to palpation, non-tender and non-distended Extremity no clubbing, cyanosis or edema Skin no rashes or lesions noted General Skin Exam: no breakdown Neuro CN's II-XII intact bilaterally Neuro Narrative: Patient is somnolent, she awakens to verbal and painful stimuli Psych Psych Narrative: Patient is somnolent, she awakens to verbal and painful stimuli Assessment & Plan Assessment/Plan (1) Alcohol withdrawal seizure: QUALIFIERS: Complication of substance-induced condition: with unspecified complication Qualified Code(s): F10.939 - Alcohol use, unspecified with withdrawal, unspecified; R56.9 - Unspecified convulsions PLAN: Plan 1. DTs from alcohol withdrawal-patient is currently on Precedex and is receiving IV phenobarbital, again I changed the interval of the IV phenobarbital to every 6 hours as well as the dose to 60 mg. #2 alcohol withdrawal seizure-patient does not appear to be having any signs of seizure activity #3 chronic alcoholism-complicates care, management, recovery, and prognosis #4 elevated liver enzymes-secondary to chronic alcohol use-these will be monitored as necessary Total clinical time spent by myself addressing the patient's medical issues, reviewing all of her data, and collaborating with patient's care team: 35 minutes Charges/Coding Visit Charges Inpatient E&M: 03390 Subs Hosp L2
[2025-01-24] VITALS (24 sets, daily range): BP systolic 91–152; BP diastolic 65–134; PULSE 65–136; RESP 10–27; TEMP 36.4–37.1; O2SAT 94–100; BMI 25.5
[2025-01-24] MEDS: Lorazepam 2 MG/ML WCH Syringe 1 MG IV ×3 (01:06→18:18)
[2025-01-24] MEDS: 0.9% Saline Lock 10 ML Syringe IV ×2 (01:06→05:26)
--- NOTE | 2025-01-24 03:15 | NURSING ---
Around 0315 on 01/24/25, patient became very agitated and anxious with severe hallucinations. RN noticed that IV running the patient's precedex was leaking, thus assuming the IV had gone bad and unable to adminster her precedex or any other meds at this time. Dr. Herron ordered IM ativan, which did settle the patient a bit for us to be able to start a new IV and restart her precedex. Rechecked the original IV and looked to be kinked. The dressing was changed and flushed fine. Patient was able to settle, but did require some continued reassurance.
--- NOTE | 2025-01-24 03:30 | PCM.HOSP.N ---
Hospitalist Note Patient with IV bed, becoming more alert and agitated, attempted sedation with Ativan 1 mg IV x 1 however not beneficial, administered Geodon 20 mg IM x 1.
[2025-01-24] MEDS: Lorazepam 2 MG/ML WCH Syringe 1 MG IM (03:31)
[2025-01-24] MEDS: Dexmedetomidine 1,000 mcg in 0.9% NS 240 mL 23.7 MCG CONT INF (06:30)
--- NOTE | 2025-01-24 18:23 | PCM.PN.HOSP ---
Reason for Visit Chief Complaint: EtOH Withdrawal and Seizure. Subjective Subjective Patient was seen and examined today, she is currently off Precedex drip, unfortunately she has periods where she becomes very agitated. She continues on IV phenobarbital. Objective Data Objective Data Vital Signs: Vital Signs Temp Pulse Resp BP Pulse Ox O2 Del Method O2 Flow Rate 97.5 F L 122 H 23 H 131/84 H 100 Room Air 3 01/24/25 10:00 01/24/25 17:00 01/24/25 17:00 01/24/25 17:00 01/24/25 17:00 01/24/25 17:00 01/23/25 23:00 Oxygen Flow Rate (L/min) 3 Oxygen Delivery Method Room Air Weight: 61.4 kg Body Mass Index (BMI) 25.5 Intake & Output: Intake and Output for Last 24 Hours 01/22/25 01/23/25 01/24/25 23:59 23:59 23:59 Intake Total 894.07 / 904.37 541.84 / 565.54 1059.01 / 1059.01 Output Total 1400 / 1800 1225 / 1265 1140 / 1140 Balance -505.93 / -895.63 -683.16 / -699.46 -80.99 / -80.99 Lab / Micro Data 01/21/25 08:00 01/21/25 08:00 Rhythm Strip Rhythm Strip: Sinus Rhythm Rate: 100 Ectopy: None Physical Exam Narrative no apparent distress and healthy appearing Constitutional Narrative: Patient is awake but confused, she is hallucinating at time General Appearance: well kempt and well developed HEENT normocephalic, head/scalp atraumatic and moist oral mucous membranes Eyes PERRL, EOMs intact bilaterally and conjunctivae normal Neck no JVD and thyroid normal General: trachea midline Resp normal respiratory effort, no retractions, no use of accessory muscles and clear to auscultation bilaterally Auscultation: Negative for rales, rhonchi or wheezes Cardio regular rate, regular rhythm, S1 normal heart sound, S2 normal heart sound, no murmurs, no rub and no gallops GI normal to inspection, nondistended, normoactive bowel sounds, soft to palpation, non-tender and non-distended Extremity no clubbing, cyanosis or edema Skin no rashes or lesions noted General Skin Exam: no breakdown Neuro CN's II-XII intact bilaterally Neuro Narrative: Patient is confused Psych Psych Narrative: Patient is awake, she is confused hallucinating at time Assessment & Plan Assessment/Plan (1) Alcohol withdrawal seizure: QUALIFIERS: Complication of substance-induced condition: with unspecified complication Qualified Code(s): F10.939 - Alcohol use, unspecified with withdrawal, unspecified; R56.9 - Unspecified convulsions PLAN: Plan 1. DTs from alcohol withdrawal-patient is currently off Precedex and is receiving IV phenobarbital #2 alcohol withdrawal seizure-patient does not appear to be having any signs of seizure activity #3 chronic alcoholism-complicates care, management, recovery, and prognosis #4 elevated liver enzymes-secondary to chronic alcohol use-these will be monitored as necessary Total clinical time spent by myself addressing the patient's medical issues, reviewing all of her data, and collaborating with patient's care team: 35 minutes Charges/Coding Visit Charges Inpatient E&M: 97288 Subs Hosp L2
[2025-01-24] MEDS: hydrOXYzine PAM 25 MG Capsule 50 MG PO (21:53)
[2025-01-25] VITALS (17 sets, daily range): BP systolic 100–140; BP diastolic 61–97; PULSE 87–110; RESP 12–18; TEMP 36.6–36.7; O2SAT 96–100; BMI 25.6
[2025-01-25] MEDS: 0.9% Saline Lock 10 ML Syringe IV ×4 (00:52→19:51)
[2025-01-25] MEDS: hydrOXYzine PAM 25 MG Capsule 50 MG PO (04:39)
--- NOTE | 2025-01-25 11:20 | NURSING ---
Bed alarm went off, RN and WIND INSTRUMENT REPAIRER immediately into room. Patient already standing at side of bed and witnessed her falling backwards into the side of the bed. WIND INSTRUMENT REPAIRER and RN assisted patient up and back into bed. Pt stating I need to go to the . Re-oriented patient to place. She is tearful and apologetic. Continues to be confused to place and situation. Small abrasion noted to R posterior upper back area, very superficial. No bleeding noted. Dr. Veloz notified as well.
[2025-01-25] MEDS: Lorazepam 2 MG/ML WCH Syringe 1 MG IV ×2 (14:57→19:51)
--- NOTE | 2025-01-25 17:01 | PCM.PN.HOSP ---
Reason for Visit Chief Complaint: EtOH Withdrawal and Seizure. Subjective Subjective Patient was seen and examined today, she appears calmer at times but is still having some hallucinations and confusion. I talked at length with her godmother, evidently patient has been through psychological stressors such as her mother's 3 years ago that she had to go to counseling to deal with, her father is homeless and on the streets of [place], her brother got released from group home and is addicted to drugs. Her godmother says that the patient has no history of bipolar disorder or schizophrenia, she has had a problem with anxiety over the past several years and she states she drinks approximately two 750 mL vodkas per day-all after she gets home from work. 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 Patient does not have a primary care physician, she sees a chiropractor for chronic back and hip pain-she is due to get an outpatient MRI on her lower back. Her godmother states that the patient would probably do an outpatient detox program rather than an inpatient detox program due to her employment. Patient also does have a significant other which she lives with. At this time I have elected to keep the patient in ICU for closer observation due to her confusion, I also took her off telemetry and contacted addiction certified social workers in health care to have them see the patient. Objective Data Objective Data Vital Signs: Vital Signs Temp Pulse Resp BP Pulse Ox O2 Del Method O2 Flow Rate 98.1 F 91 14 116/83 H 97 Room Air 3 01/25/25 14:00 01/25/25 14:00 01/25/25 14:00 01/25/25 14:00 01/25/25 14:00 01/25/25 14:00 01/23/25 23:00 Oxygen Flow Rate (L/min) 3 Oxygen Delivery Method Room Air Weight: 61.6 kg Body Mass Index (BMI) 25.6 Intake & Output: Intake and Output for Last 24 Hours 01/23/25 01/24/25 01/25/25 23:59 23:59 23:59 Intake Total 541.84 / 565.54 1724.01 / 1724.01 1080 / 1080 Output Total 1225 / 1265 1440 / 1440 Balance -683.16 / -699.46 284.01 / 284.01 1080 / 1080 Lab / Micro Data 01/21/25 08:00 01/21/25 08:00 Rhythm Strip Rhythm Strip: Sinus Rhythm Rate: 100 Ectopy: None Physical Exam Const alert, no apparent distress and healthy appearing General Appearance: cooperative, well kempt and well developed Orientation / Consciousness: awake and oriented to person HEENT normocephalic, head/scalp atraumatic and moist oral mucous membranes Eyes PERRL, EOMs intact bilaterally and conjunctivae normal Neck supple, no JVD and thyroid normal General: trachea midline Resp normal respiratory effort, no retractions, no use of accessory muscles and clear to auscultation bilaterally Auscultation: Negative for rales, rhonchi or wheezes Cardio regular rate, regular rhythm, S1 normal heart sound, S2 normal heart sound, no murmurs, no rub and no gallops GI normal to inspection, nondistended, normoactive bowel sounds, soft to palpation, non-tender and non-distended Extremity no clubbing, cyanosis or edema Skin no rashes or lesions noted General Skin Exam: no breakdown Neuro CN's II-XII intact bilaterally and moves all extremities Neuro Narrative: Patient is alert, she is inappropriately laughing at time Sensorium / Orientation: awake and alert Psych Psych Narrative: Patient is inappropriately laughing at time, she exhibits some confusion Assessment & Plan Assessment/Plan (1) Alcohol withdrawal seizure: QUALIFIERS: Complication of substance-induced condition: with unspecified complication Qualified Code(s): F10.939 - Alcohol use, unspecified with withdrawal, unspecified; R56.9 - Unspecified convulsions PLAN: Plan 1. DTs from alcohol withdrawal-patient is currently on oral phenobarbital #2 alcohol withdrawal seizure-patient does not appear to be having any signs of seizure activity #3 chronic alcoholism-complicates care, management, recovery, and prognosis #4 elevated liver enzymes-secondary to chronic alcohol use-these will be monitored as necessary Total clinical time spent by myself addressing the patient's medical issues, reviewing all of her data, and collaborating with patient's care team: 35 minutes Charges/Coding Visit Charges Inpatient E&M: 28939 Subs Hosp L2
[2025-01-25] MEDS: Divalproex (ER) 500 MG Tablet PO (19:49)
--- NOTE | 2025-01-25 21:33 | NURSING ---
Patient very unsteady on feet. Noted to have fallen in room earlier in day 01/25. Bed alarm on, patient attempting to get OOB without staff assistance multiple times. Patient disoriented and having visual hallucinations. When asked, patient states she knows her visual hallucinations are not reality. Able to be redirected and reoriented to situation for a brief period of time, then patient is confused again. Staff attempting nonpharm measures for comfort, uneffective at this time.
[2025-01-26 02:00] VITALS: BP 131/94; PULSE 79; RESP 15; TEMP 36.6; O2SAT 99
[2025-01-26] MEDS: Lorazepam 2 MG/ML WCH Syringe 1 MG IV ×2 (03:41→09:21)
[2025-01-26 03:52] VITALS: BMI 24.5
[2025-01-26 08:00] VITALS: BP 124/94; PULSE 82; RESP 16; TEMP 36.6; O2SAT 98
[2025-01-26] MEDS: Divalproex (ER) 500 MG Tablet PO (08:24)
[2025-01-26] MEDS: 0.9% Saline Lock 10 ML Syringe IV ×3 (09:21→21:29)
[2025-01-26 14:00] VITALS: BP 115/86; PULSE 78; RESP 16; TEMP 36.7; O2SAT 97
--- NOTE | 2025-01-26 17:52 | PN.HOSP_ITS ---
Reason for Visit Chief Complaint: EtOH Withdrawal and Seizure. Subjective Subjective Patient was seen and examined today, earlier today she exhibited some agitation and I gave her IV Haldol. This afternoon, patient is alert and converses with me and does not appear to be anxious or agitated. I think she is stable for transfer to [facility], I will talk to nursing whether she requires a sitter in the room. Objective Data Objective Data Vital Signs: Vital Signs Temp Pulse Resp BP Pulse Ox O2 Del Method O2 Flow Rate 98.1 F 78 16 115/86 H 97 Room Air 3 01/26/25 14:00 01/26/25 14:00 01/26/25 14:00 01/26/25 14:00 01/26/25 14:00 01/26/25 14:00 01/23/25 23:00 Oxygen Flow Rate (L/min) 3 Oxygen Delivery Method Room Air Weight: 58.8 kg Body Mass Index (BMI) 24.5 Intake & Output: Intake and Output for Last 24 Hours 01/24/25 01/25/25 01/26/25 23:59 23:59 23:59 Intake Total 1724.01 / 1724.01 1080 / 1080 360 / 360 Output Total 1440 / 1440 300 / 300 Balance 284.01 / 284.01 780 / 780 360 / 360 Medical Nutrition Assessment Dietitian: Malnutrition Criteria Met Start: 01/26/25 10:36 Freq: Status: Active Protocol: Document 01/26/25 10:36 GALLO (Rec: 01/26/25 10:36 [facility] [id number]) Nutrition Malnutrition Evidence of Yes Malnutrition Exists Malnutrition (severe Social/Behavioral/Environmental ): Evidenced By Suboptimal Energy Intake (Severe),Weight Loss (Severe) Intake Problem Inadequate Oral Intake Status Inactive Problem Clinical Problem Acute Disease or Injury Related Malnutrition Etiology related to etoh withdrawal/lethargic/hallucinations and confusion causing suboptimal energy intake Signs/Symptoms as evidenced by po intake <25% x 3 days at time of adm and 7.2%/4.5kg wt loss x 5 days Status Active Problem Recommendation Dietitian Continue Regular diet as tolerated Recommendations/ Will provide 8 oz EPHP tid w/ meals for increased Changes nutrition if consumed. Lab / Micro Data 01/21/25 08:00 01/21/25 08:00 Rhythm Strip Rhythm Strip: Sinus Rhythm Rate: 100 Ectopy: None Physical Exam Const alert, no apparent distress and healthy appearing HEENT head/scalp atraumatic and moist oral mucous membranes Eyes PERRL, EOMs intact bilaterally and conjunctivae normal Neck supple and no JVD Resp normal respiratory effort, no retractions, no use of accessory muscles and clear to auscultation bilaterally Cardio regular rate, regular rhythm, S1 normal heart sound, S2 normal heart sound, no murmurs and no rub GI normal to inspection, nondistended, normoactive bowel sounds, soft to palpation and non-tender Extremity normal to inspection and no clubbing, cyanosis or edema Neuro CN's II-XII intact bilaterally, moves all extremities and no focal motor deficits Sensorium / Orientation: awake, alert, oriented to person and oriented to place Speech: speech normal Psych Psych Narrative: Patient has blunted affect Assessment & Plan Assessment/Plan (1) Alcohol withdrawal seizure: QUALIFIERS: Complication of substance-induced condition: with unspecified complication Qualified Code(s): F10.939 - Alcohol use, unspecified with withdrawal, unspecified; R56.9 - Unspecified convulsions PLAN: Plan 1. DTs from alcohol withdrawal-patient's phenobarbital was stopped today, I feel that it could be adding to the patient's delirium, patient will receive IM Haldol every 6 hours as needed when she goes to [facility]. She will be seen by addiction social media executive tomorrow if she is alert and not confused. #2 alcohol withdrawal seizure-patient does not appear to be having any signs of seizure activity #3 chronic alcoholism-complicates care, management, recovery, and prognosis #4 elevated liver enzymes-secondary to chronic alcohol use-these will be monitored as necessary Total clinical time spent by myself addressing the patient's medical issues, reviewing all of her data, and collaborating with patient's care team: 35 minutes Charges/Coding Visit Charges Inpatient E&M: 51019 Subs Hosp L2
--- NOTE | 2025-01-26 19:38 | NURSING ---
Patient arrived from ICU
[2025-01-26 21:08] VITALS: BP 150/101; PULSE 77; RESP 16; TEMP 36.8; O2SAT 100
[2025-01-27] VITALS (7 sets, daily range): BP systolic 118–131; BP diastolic 70–101; PULSE 85–114; RESP 16–18; TEMP 36.4–37; O2SAT 97–100; BMI 26.2
[2025-01-27] MEDS: Divalproex (ER) 500 MG Tablet 1000 MG PO (08:54)
--- NOTE | 2025-01-27 18:11 | PCM.PN.HOSP ---
Reason for Visit Chief Complaint: EtOH Withdrawal and Seizure. Subjective Subjective Patient was seen and examined today, she does not appear agitated, she does appear sleepy however but wakes up to verbal and tactile stimulation. Nursing states that the patient has been making statements that do not make any sense at times. She told me she would like to do an outpatient detox at [facility] when she is discharged from the hospital. Objective Data Objective Data Vital Signs: Vital Signs Temp Pulse Resp BP Pulse Ox O2 Del Method O2 Flow Rate 97.5 F L 85 18 131/93 H 100 Room Air 3 01/27/25 16:47 01/27/25 16:47 01/27/25 16:47 01/27/25 16:47 01/27/25 16:47 01/27/25 16:47 01/23/25 23:00 Oxygen Flow Rate (L/min) 3 Oxygen Delivery Method Room Air Weight: 62.8 kg Body Mass Index (BMI) 26.2 Intake & Output: Intake and Output for Last 24 Hours 01/25/25 01/26/25 01/27/25 23:59 23:59 23:59 Intake Total 1080 / 1080 360 / 360 Output Total 300 / 300 Balance 780 / 780 360 / 360 Medical Nutrition Assessment Dietitian: Malnutrition Criteria Met Start: 01/26/25 10:36 Freq: Status: Active Protocol: Document 01/26/25 10:36 GALLO (Rec: 01/26/25 10:36 GALLO [id number]) Nutrition Malnutrition Evidence of Yes Malnutrition Exists Malnutrition (severe Social/Behavioral/Environmental ): Evidenced By Suboptimal Energy Intake (Severe),Weight Loss (Severe) Intake Problem Inadequate Oral Intake Status Inactive Problem Clinical Problem Acute Disease or Injury Related Malnutrition Etiology related to etoh withdrawal/lethargic/hallucinations and confusion causing suboptimal energy intake Signs/Symptoms as evidenced by po intake <25% x 3 days at time of adm and 7.2%/4.5kg wt loss x 5 days Status Active Problem Recommendation Dietitian Continue Regular diet as tolerated Recommendations/ Will provide 8 oz EPHP tid w/ meals for increased Changes nutrition if consumed. Lab / Micro Data 01/21/25 08:00 01/21/25 08:00 Rhythm Strip Rhythm Strip: Sinus Rhythm Rate: 100 Ectopy: None Physical Exam Narrative alert, no apparent distress and healthy appearing HEENT head/scalp atraumatic and moist oral mucous membranes Eyes PERRL, EOMs intact bilaterally and conjunctivae normal Neck supple and no JVD Resp normal respiratory effort, no retractions, no use of accessory muscles and clear to auscultation bilaterally Cardio regular rate, regular rhythm, S1 normal heart sound, S2 normal heart sound, no murmurs and no rub GI normal to inspection, nondistended, normoactive bowel sounds, soft to palpation and non-tender Extremity normal to inspection and no clubbing, cyanosis or edema Neuro CN's II-XII intact bilaterally, moves all extremities and no focal motor deficits Sensorium / Orientation: awake, alert, oriented to person and oriented to place Speech: speech normal Psych Psych Narrative: Patient has blunted affect Assessment & Plan Assessment/Plan (1) Alcohol withdrawal seizure: QUALIFIERS: Complication of substance-induced condition: with unspecified complication Qualified Code(s): F10.939 - Alcohol use, unspecified with withdrawal, unspecified; R56.9 - Unspecified convulsions PLAN: Plan 1. DTs from alcohol withdrawal-patient appears improved, again I have placed her on Depakote as a mood stabilizer, I increased the dose to 1000 mg daily, patient will be seen by addiction transition social worker on 01/29/2025 for further recommendations regarding follow-up detox services #2 alcohol withdrawal seizure-patient does not appear to be having any signs of seizure activity #3 chronic alcoholism-complicates care, management, recovery, and prognosis #4 elevated liver enzymes-secondary to chronic alcohol use-these will be monitored as necessary #5 severe acute protein and caloric malnutrition-related to alcohol withdrawal and confusion causing suboptimal energy intake as evidenced by p.o. intake less than 25% x 3 days at the time of administration and 7.2% / 4.5 kg weight loss x 5 days, continue regular diet as tolerated, nutritional services will provide 8 ounces EPHP 3 times daily with meals for increased nutrition if consent Total clinical time spent by myself addressing the patient's medical issues, reviewing all of her data, and collaborating with patient's care team: 35 minutes Charges/Coding Visit Charges Inpatient E&M: 50616 Subs Hosp L2
[2025-01-28] VITALS (9 sets, daily range): BP systolic 112–130; BP diastolic 70–84; PULSE 80–89; RESP 16–18; TEMP 36.5–36.8; O2SAT 96–99; BMI 26.0
[2025-01-28] MEDS: Divalproex (ER) 500 MG Tablet 1000 MG PO (08:44)
--- NOTE | 2025-01-28 14:01 | ADDICTION ---
Met with nicholas to discuss Tx services and options. Provided client with resources. Client acknowledged need for Tx
--- NOTE | 2025-01-28 16:57 | PN.HOSP_ITS ---
Reason for Visit Chief Complaint: EtOH Withdrawal and Seizure. Subjective Subjective Patient was seen and and pleasant, she does not appear to be agitated and she does not appear to be delusional. She answers questions appropriately. Addiction high school social studies teacher will see the patient today and formulate a discharge plan for the patient. Objective Data Objective Data Vital Signs: Vital Signs Temp Pulse Resp BP Pulse Ox O2 Del Method O2 Flow Rate 98 F 80 18 130/70 H 99 Room Air 3 01/28/25 15:46 01/28/25 15:46 01/28/25 15:46 01/28/25 15:46 01/28/25 15:46 01/28/25 15:46 01/23/25 23:00 Oxygen Flow Rate (L/min) 3 Oxygen Delivery Method Room Air Weight: 62.6 kg Body Mass Index (BMI) 26.0 Intake & Output: Intake and Output for Last 24 Hours 01/26/25 01/27/25 01/28/25 23:59 23:59 23:59 Intake Total 360 / 360 Balance 360 / 360 Medical Nutrition Assessment Dietitian: Malnutrition Criteria Met Start: 01/26/25 10:36 Freq: Status: Active Protocol: Document 01/26/25 10:36 [facility] (Rec: 01/26/25 10:36 [facility] [id number]) Nutrition Malnutrition Evidence of Yes Malnutrition Exists Malnutrition (severe Social/Behavioral/Environmental ): Evidenced By Suboptimal Energy Intake (Severe),Weight Loss (Severe) Intake Problem Inadequate Oral Intake Status Inactive Problem Clinical Problem Acute Disease or Injury Related Malnutrition Etiology related to etoh withdrawal/lethargic/hallucinations and confusion causing suboptimal energy intake Signs/Symptoms as evidenced by po intake <25% x 3 days at time of adm and 7.2%/4.5kg wt loss x 5 days Status Active Problem Recommendation Dietitian Continue Regular diet as tolerated Recommendations/ Will provide 8 oz EPHP tid w/ meals for increased Changes nutrition if consumed. Lab / Micro Data 01/21/25 08:00 01/21/25 08:00 Rhythm Strip Rhythm Strip: Sinus Rhythm Rate: 100 Ectopy: None Physical Exam Const alert, oriented x3, no apparent distress, average body habitus and healthy appearing General Appearance: cooperative, well kempt and well developed Orientation / Consciousness: awake, oriented to person, oriented to place and oriented to time HEENT normocephalic and moist oral mucous membranes Eyes PERRL, EOMs intact bilaterally and conjunctivae normal Neck supple, no JVD, thyroid normal and no carotid bruits General: trachea midline Resp normal respiratory effort, no retractions, no use of accessory muscles and clear to auscultation bilaterally Auscultation: Negative for rales, rhonchi or wheezes Cardio regular rate, regular rhythm, S1 normal heart sound, S2 normal heart sound, no murmurs, no rub and no gallops GI normal to inspection, nondistended, normoactive bowel sounds, soft to palpation, non-tender and non-distended Extremity no clubbing, cyanosis or edema Skin no rashes or lesions noted General Skin Exam: no breakdown Neuro oriented x3, CN's II-XII intact bilaterally, moves all extremities, no focal motor deficits and no sensory deficits noted Sensorium / Orientation: awake and alert Speech: speech normal Psych affect normal Assessment & Plan Assessment/Plan (1) Alcohol withdrawal seizure: QUALIFIERS: Complication of substance-induced condition: with unspecified complication Qualified Code(s): F10.939 - Alcohol use, unspecified with withdrawal, unspecified; R56.9 - Unspecified convulsions PLAN: Plan 1. DTs from alcohol withdrawal-this has resolved at this time, patient remains on Depakote ER 1000 mg daily as a mood stabilizer, she will follow-up with addiction high school social studies teacher and formulated discharge plan, patient will be reevaluated tomorrow for possible discharge #2 alcohol withdrawal seizure-patient does not appear to be having any signs of seizure activity #3 chronic alcoholism-complicates care, management, recovery, and prognosis #4 elevated liver enzymes-secondary to chronic alcohol use-liver profile will be drawn tomorrow morning #5 severe acute protein and caloric malnutrition-related to alcohol withdrawal and confusion causing suboptimal energy intake as evidenced by p.o. intake less than 25% x 3 days at the time of administration and 7.2% / 4.5 kg weight loss x 5 days, continue regular diet as tolerated, nutritional services will provide 8 ounces EPHP 3 times daily with meals for increased nutrition if consent Total clinical time spent by myself addressing the patient's medical issues, reviewing all of her data, and collaborating with patient's care team: 35 minutes Charges/Coding Visit Charges Inpatient E&M: 45390 Subs Hosp L2
[2025-01-29] VITALS: BP 124/82; PULSE 89; RESP 16; TEMP 36.7; O2SAT 98
[2025-01-29 04:00] VITALS: BP 122/78; PULSE 75; RESP 16; TEMP 36.8; O2SAT 98
[2025-01-29 06:00] VITALS: BMI 26.2
[2025-01-29 07:00] LABS: AST(SGOT) 26 U/L (<=31); Alanine Aminotransfer ALT/SGPT 21 U/L (<=34); Albumin, Serum 3.9 g/dL (3.5-5.0); Alkaline Phosphatase 55 U/L (35-104); Bilirubin, Direct < 0.08 mg/dL (0.00-0.30); Globulin 2.6 g/dL (2.2-4.2)
[2025-01-29 08:00] VITALS: BP 111/96; PULSE 87; RESP 16; TEMP 36.7; O2SAT 95
[2025-01-29] MEDS: Divalproex (ER) 500 MG Tablet 1000 MG PO (09:38)
--- NOTE | 2025-01-29 11:15 | CASEMGMT ---
Addendum entered by Yojana Murrieta 01/29/25 12:22: HONORIO ROSALES into pt room, pt states she does not have a PCP but she plans to go where her godmother goes to. Pt cannot recall name of physician but states the physician is in [place]. Pt denies need for assistance with setting up an appt. Original Note: Hospitalist states pt needs FWW. HONORIO ROSALES into pt room, pt states she is interested in a walker. Provided pt with a local verbal in network list of DME providers, pt chose [facility]. Pt denies need for therapy as she states she is going to go to the [facility] on her own. [facility].
--- NOTE | 2025-01-29 11:53 | PCM.DC.SUM ---
Providers Date of Admission: 01/19/25 Date of Discharge: 01/29/25 Primary Care Physician: No Primary Care Phys Reason For Visit: ETOH WITHDRAWAL, SEIZURE Diagnosis Discharge Diagnosis (1) Alcohol withdrawal seizure: Status: Acute Code(s): F10.939 - Alcohol use, unspecified with withdrawal, unspecified; R56.9 - Unspecified convulsions Qualifiers: Complication of substance-induced condition: with unspecified complication Qualified Code(s): F10.939 - Alcohol use, unspecified with withdrawal, unspecified; R56.9 - Unspecified convulsions Medications at Discharge Home Medications NK 01/19/25 Hospital Course Operations None Procedures None Summary of Care Provided Minutes Spent on Discharge: 38 Hospital Course: Mrs. Bean is a 29-year-old white female who presented to emergency department [facility] on 01/19/2025 with request for alcohol detox. Her last drink prior to presentation was at 2100 the day prior and she is she initially went to [place] emergency department and they told her she could not be admitted there because she was not actively withdrawing. Her godmother picked her up when she got off work today and brought her to [place]. While in triage patient had a generalized tonic-clonic seizure related to alcohol withdrawal. Patient has no previous history of seizure disorder. She is also never had a alcohol withdrawal seizure. Vital signs on presentation showed temperature 98.1, heart rate 104, blood pressure 149/109, respiratory 16 and pulse ox 98% room air. CBC was overtly unremarkable other than chronic thrombocytopenia with a platelet count of 79,000. Her chemistry panel was overall unremarkable. Initial transaminases were elevated with an AST of 99 and ALT of 66 but both had resolved by the . Patient did develop pretty extensive withdrawal symptoms including anxiety, confusion, and hallucination. She was transferred to the intensive care unit for IV Precedex in addition to her phenobarbital. Code lambert was called but patient de-escalated quickly. Patient did however require more intensive regimen with regards to her phenobarbital taper than typically utilized. She did become more agitated and required 1 dose of Geodon. The Precedex was able to be weaned on 01/24/2025 and was off by 01/25/2025. Patient was still having some hallucinations and confusions but her agitation had significantly improved. Upon improved mentation and discussion with her godmother patient had been under significant psychological stressors including the of her mother that happened 3 years ago, homelessness and her father, and her brother is addicted to drugs and had been just released from care home. It was reported that patient was drinking to 750 mL bottles of vodka after work until the point she would pass out. She was able to be transferred out of the ICU on 01/26/2025 to the general medical floor and hallucinations finally resolved by 01/28/2025. Patient was doing medically well and able to be discharged on 01/21/2025. She did have some weakness in her legs due to being in bed and active for some period of time and was therefore discharged with a walker. She indicated she was feeling quite well. [facility] for follow-up with regards to primary care after discharge. She was not discharged on any medications. With regards to her alcohol use disorder, we did recommend inpatient residential treatment however the patient declined and she was strongly encouraged to follow-up today after discharge over at [facility] for outpatient follow-up for intake. Patient voiced understanding. Discharge diagnoses: DTs Acute alcohol withdrawal Seizure secondary to alcohol withdrawal Thrombocytopenia Transaminitis secondary to alcohol use-resolved Severe malnutrition History of tobacco abuse Physical Exam Const alert, oriented x3, no apparent distress and no limitations Constitutional Narrative: Overweight, middle-aged, white female, sitting up in bed, watching television, appears comfortable, nontoxic General Appearance: cooperative, comfortable, well kempt and well developed Orientation / Consciousness: awake, oriented to person, oriented to place and oriented to time Exam Limitations: no limitations Nutritional Appearance: overweight HEENT normocephalic, head/scalp atraumatic, hearing grossly normal bilaterally and moist oral mucous membranes HEENT Narrative: Mallampati 2, no thrush Eyes EOMs intact bilaterally and conjunctivae normal Eyes Narrative: No scleral icterus Neck no lymphadenopathy and supple Neck Narrative: Trachea midline Resp normal respiratory effort, no retractions, no use of accessory muscles and clear to auscultation bilaterally Auscultation: Negative for rales, rhonchi or wheezes Cardio regular rate, regular rhythm, S1 normal heart sound, S2 normal heart sound, no murmurs, no rub, no gallops and no clicks GI normal to inspection, nondistended, normoactive bowel sounds, soft to palpation and non-tender Extremity no clubbing, cyanosis or edema Extremity Narrative: 2+ pedal pulses Skin no wounds, skin turgor normal and no jaundice Neuro oriented x3, moves all extremities, no focal motor deficits and no sensory deficits noted Neuro Narrative: Bilateral lower extremity generalized weakness Speech: speech normal Psych affect normal Psych Narrative: Very friendly, eye contact is good patient interacts appropriately Medical Records Data Medical Nutrition Assessment Dietitian: Malnutrition Criteria Met Start: 01/26/25 10:36 Freq: Status: Active Protocol: Document 01/26/25 10:36 [facility] (Rec: 01/26/25 10:36 [facility] [id number]) Nutrition Malnutrition Evidence of Yes Malnutrition Exists Malnutrition (severe Social/Behavioral/Environmental ): Evidenced By Suboptimal Energy Intake (Severe),Weight Loss (Severe) Intake Problem Inadequate Oral Intake Status Inactive Problem Clinical Problem Acute Disease or Injury Related Malnutrition Etiology related to etoh withdrawal/lethargic/hallucinations and confusion causing suboptimal energy intake Signs/Symptoms as evidenced by po intake <25% x 3 days at time of adm and 7.2%/4.5kg wt loss x 5 days Status Active Problem Recommendation Dietitian Continue Regular diet as tolerated Recommendations/ Will provide 8 oz EPHP tid w/ meals for increased Changes nutrition if consumed. Weight / BMI Weight Weight: 63 kg Body Mass Index (BMI) 26.2 ABG / Lab / Microbiology Data 01/21/25 08:00 01/21/25 08:00 Laboratory: Laboratory Results - last 24 hr 01/29/25 06:24: Total Bilirubin 0.19, Direct Bilirubin < 0.08, AST 26, ALT 21, Alkaline Phosphatase 55, Total Protein 6.4, Albumin 3.9, Globulin 2.6 D/C Instructions Discharge Activity: Return to Normal Activity DC O2, CPAP, BIPAP Needs Home O2 Discharge instructions: No Meaningful Use Info Meaningful Use Meaningful Use Diagnoses (Choose all that apply): None applicable Discharge Plan Admission Admit Date/Time: 01/19/25 22:37 Primary Reason for Your Visit: Alcohol detox Attending Provider: Tashia Foster Primary Care Provider: Care Physician,No Primary Consulting Providers: Bogdan Dick; Carolina Herron; Yogesh Sloan Instructions Additional Instructions / Restrictions: 1. Please go to [facility] after discharge for intake and initiation of outpatient treatment Discharge Orders/Prescriptions Prescriptions: Continued NK Referrals / Follow Up: Care Physician,No Primary [Primary Care Provider] - [facility] Doctor,Out of [Non-Staff] - Within 2 Weeks Disposition Disposition (needs filled in before D/C Order can be placed): Home, Self Care Charges/Coding Visit Charges Inpatient E&M: 50389 Init Hosp L3
[2025-01-29 14:10] VITALS: BP 116/86; PULSE 88; RESP 17; TEMP 36.7; O2SAT 96
== END 2025-01-29 15:50 | disposition home or self-care (01) | DRG 896 ==
LOC: ED 22:19 → PCU 01-20 07:02 → ICU 01-22 07:33 → PCU 01-22 10:27 → ICU 01-25 14:02 → MS3 01-26 19:49
PROVIDERS: Family Medicine; Internal Medicine; Admitting Provider Internal Medicine; Emergency Provider Emergency Medicine; Visit Provider Internal Medicine
DX: F10.139 Alcohol abuse with withdrawal, unspecified (principal); E43 Unspecified severe protein-calorie malnutrition; G40.89 Other seizures; D69.6 Thrombocytopenia, unspecified; K70.10 Alcoholic hepatitis without ascites; E66.3 Overweight; Z68.25 Body mass index [BMI] 25.0-25.9, adult; Z87.891 Personal history of nicotine dependence; Y90.4 Blood alcohol level of 80-99 mg/100 ml
CPT/HCPCS: 36415; 80053; 80076; 80307; 81001; 82077; 82607; 82746; 83735; 84100; 84439; 84443; 84481; 84484; 84703; 85025; 85610; 93005; 97116; 97162; 97167; 97530; 97535; 99285; A4216; J2405